=== PATIENT | male | born 1955 | race Hispanic/Latino ===

== ENCOUNTER 2017-12-23 01:45 | Emergency (ER) | payer OTHER ==
[2017-12-23] MEDS ORDERED: LIDOCAINE HCL 2% VISCOUS 15 ML UDCUP ONE (02:03)
[2017-12-23] MEDS ORDERED: MAG HYDROX/AL HYDROX/SIMETH ES 30 ML SUSP UDCUP ONE (02:03)
[2017-12-23] MEDS ORDERED: ONDANSETRON HCL 4 MG/2 ML VIAL ONE ×2 (02:04→04:01)
[2017-12-23] MEDS ORDERED: SODIUM CHLORIDE 0.9% 1000ML 1,000 ML IV ONE (02:04)
[2017-12-23 02:11] LABS: BASOPHILS % (AUTO) 0.7 % (0.0-5.0); EOSINOPHILS % (AUTO) 2.3 % (0.0-8.0); HEMATOCRIT 42.2 % (42-54); LYMPHOCYTES % (AUTO) 22.2 % (21.0-51.0); MEAN CORPUSCULAR HEMOGLOBIN 28.5 pg (27.0-33.0); MEAN CORPUSCULAR HGB CONC 34.2 g/dL (32.0-36.0); MEAN CORPUSCULAR VOLUME 83.5 fL (79-99); NEUTROPHILS % (AUTO) 68.8 % (40.0-77.0); PLATELET COUNT (AUTO) 355 K/uL (130-400); RED BLOOD CELL COUNT(AUTO) 5.06 MIL/uL (4.50-6.20); RED CELL DISTRIBUTION WIDTH 13.2 % (11.0-15.5); WHITE BLOOD COUNT (AUTO) 15.4 K/uL (4.8-10.8)
[2017-12-23 02:15] LABS: CREATININE 0.8 mg/dL (0.5-1.5); POTASSIUM 4.1 mmol/L (3.5-5.1)
[2017-12-23 02:19] LABS: ALBUMIN 3.5 g/dL (3.5-5.0); BILIRUBIN,DIRECT 0.1 mg/dL (0.0-0.3); BILIRUBIN,TOTAL 0.3 mg/dL (0.2-1.0); TOTAL PROTEIN, SERUM 7.5 g/dL (6.0-8.3)
[2017-12-23 02:36] LABS: INR 0.99 (0.85-1.15); PARTIAL THROMBOPLASTIN TIME 27.1 SEC (26.3-35.5); PROTHROMBIN TIME 10.4 SEC (9.6-11.6)
[2017-12-23] MEDS ORDERED: MORPHINE SULFATE 4 MG/1ML SYG ONE (04:02)
== END 2017-12-23 06:01 | disposition home or self-care (01) ==
LOC: EDH 01:45
DX: K29.70 Gastritis, unspecified, without bleeding (principal)
CPT/HCPCS: 36415; 71045; 74176; 80048; 80076; 82550; 83690; 84484; 85025; 85610; 85730; 93005; 96361; 96374; 96375; 96376; 99285; J2270; J2405 ×2; J7030

== ENCOUNTER 2019-11-04 06:02 | Emergency (ER) | payer OTHER ==
[2019-11-04] MEDS ORDERED: ONDANSETRON HCL 4 MG/2 ML VIAL ONE (06:38)
[2019-11-04] MEDS ORDERED: METOCLOPRAMIDE 10 MG/2 ML VIAL ONE (06:38)
[2019-11-04] MEDS ORDERED: FAMOTIDINE/PF 20 MG/2 ML VIAL IV ONE (06:39)
[2019-11-04 06:41] LABS: BASOPHILS % (AUTO) 0.5 % (0.0-5.0); EOSINOPHILS % (AUTO) 0.9 % (0.0-8.0); HEMATOCRIT 46.7 % (42-54); LYMPHOCYTES % (AUTO) 12.7 % (21.0-51.0); MEAN CORPUSCULAR HGB CONC 33.8 g/dL (32.0-36.0); MEAN CORPUSCULAR VOLUME 82.7 fL (79-99); MONOCYTES % (AUTO) 3.2 % (3.0-13.0); NEUTROPHILS % (AUTO) 82.3 % (40.0-77.0); PLATELET COUNT (AUTO) 271 K/uL (130-400); RED BLOOD CELL COUNT(AUTO) 5.65 MIL/uL (4.50-6.20); RED CELL DISTRIBUTION WIDTH 13.1 % (11.0-15.5); WHITE BLOOD COUNT (AUTO) 18.1 K/uL (4.8-10.8)
[2019-11-04 07:12] LABS: ALBUMIN 4.1 g/dL (3.5-5.0); BILIRUBIN,TOTAL 0.6 mg/dL (0.2-1.0); CREATININE 0.8 mg/dL (0.5-1.5); POTASSIUM 4.3 mmol/L (3.5-5.1); TOTAL PROTEIN, SERUM 7.9 g/dL (6.0-8.3)
[2019-11-04 07:29] LABS: INR 1.01 (0.85-1.15); PARTIAL THROMBOPLASTIN TIME 25.7 SEC (26.3-35.5); PROTHROMBIN TIME 10.6 SEC (9.6-11.6)
[2019-11-04] MEDS ORDERED: IOHEXOL-350 75 ML VIAL IV ONE (07:42)
[2019-11-04 09:55] LABS: APPEARANCE,URINE Clear (CLEAR); BILIRUBIN,URINE Negative (NEGATIVE); COLOR,URINE Yellow (YELLOW); GLUCOSE, URINE (UA) Negative (NEGATIVE); KETONES,URINE Negative (NEGATIVE); LEUKOCYTE ESTERASE ,URINE Negative (NEGATIVE); NITRATE,URINE Negative (NEGATIVE); OCCULT BLOOD,URINE Negative (NEGATIVE); PROTEIN,URINE Negative (NEGATIVE); UROBILINOGEN,URINE 0.2 mg/dL (0.2-1.0)
== END 2019-11-04 09:56 | disposition home or self-care (01) ==
LOC: EDH 06:02
DX: R10.13 Epigastric pain (principal); R19.7 Diarrhea, unspecified; I49.9 Cardiac arrhythmia, unspecified
CPT/HCPCS: 36415; 74177; 80053; 81003; 83605; 83690; 84484; 85025; 85610; 85730; 93005; 96361; 96374; 96375; 99285; J2405; J2765; J3490; Q9967

== ENCOUNTER 2021-05-13 13:38 | Observation (INO) | payer MEDICARE ==
[~2021-05-13] VITALS: Ht 172.7 cm; Wt 87.0 kg
[2021-05-13 13:47] VITALS: BP 122/63
[2021-05-13 14:13] LABS: BASOPHILS % (AUTO) 0.7 % (0.0-5.0); EOSINOPHILS % (AUTO) 6.3 % (0.0-8.0); HEMATOCRIT 44.3 % (42-54); LYMPHOCYTES % (AUTO) 23.8 % (21.0-51.0); MEAN CORPUSCULAR HEMOGLOBIN 28.3 pg (27.0-33.0); MEAN CORPUSCULAR HGB CONC 33.6 g/dL (32.0-36.0); MEAN CORPUSCULAR VOLUME 84.2 fL (79-99); MONOCYTES % (AUTO) 3.8 % (3.0-13.0); NEUTROPHILS % (AUTO) 64.9 % (40.0-77.0); PLATELET COUNT (AUTO) 238 K/uL (130-400); RED BLOOD CELL COUNT(AUTO) 5.26 MIL/uL (4.50-6.20)
[2021-05-13 14:24] LABS: CREATININE 0.9 mg/dL (0.5-1.5); POTASSIUM 4.2 mmol/L (3.5-5.1)
[2021-05-13 14:25] LABS: INR 1.15 (0.85-1.15); PROTHROMBIN TIME 12.4 SEC (9.6-11.6)
[2021-05-13 14:28] LABS: BILIRUBIN,TOTAL 0.8 mg/dL (0.2-1.0); TOTAL PROTEIN, SERUM 6.8 g/dL (6.0-8.3)
[2021-05-13 14:32] LABS: B-TYPE NATRIURETIC PEPTIDE 78 pg/mL (0-100)
[2021-05-13] MEDS ORDERED: ASPIRIN 81MG CHEW TAB ONE (16:30)
[2021-05-13] MEDS ORDERED: NITROGLYCERIN PATCH 0.2 MG/HR TD SCH (16:30)
[2021-05-13] MEDS ORDERED: NITROGLYCERIN 1GM OINT 1 INCH/1GM TD ONE (16:30)
[2021-05-13 16:40] VITALS: BP 107/57
[2021-05-13] MEDS: ASPIRIN 325MG TAB PO SCH (16:42)
[2021-05-13] MEDS: ENOXAPARIN SODIUM 100 MG/1 ML SQ SCH (18:09)
[2021-05-13 18:11] VITALS: BP 108/64
[2021-05-13 20:02] VITALS: BP 104/58
[2021-05-13 20:40] LABS: CREATINE KINASE, TOTAL 80 U/L (21-232); MYOGLOBIN 24 ng/mL (10-92); TROPONIN I < 0.04 ng/mL (0.00-0.06)
[2021-05-13 21:20] LABS: APPEARANCE,URINE Clear (CLEAR); BILIRUBIN,URINE Negative (NEGATIVE); COLOR,URINE Yellow (YELLOW); GLUCOSE, URINE (UA) Negative (NEGATIVE); KETONES,URINE Negative (NEGATIVE); LEUKOCYTE ESTERASE ,URINE Negative (NEGATIVE); NITRATE,URINE Negative (NEGATIVE); OCCULT BLOOD,URINE Negative (NEGATIVE); PROTEIN,URINE Negative (NEGATIVE)
[2021-05-13] MEDS ORDERED: 0.9%NACL 1000ML 1,000 ML IV SCH ×2 (23:00→23:59)
[2021-05-13 23:27] VITALS: BP 105/55
[2021-05-14] VITALS (7 sets, daily range): BP systolic 89–118; BP diastolic 50–73
[2021-05-14] MEDS: 0.9%NACL 1000ML 1,000 ML IV SCH ×3 (00:25→20:28)
[2021-05-14 00:35] LABS: ABG OXYGEN SATURATION 80.3 % (95.0-99.0); BASE EXCESS,VENOUS BLOOD GAS -2.9 (-2.0-3.0); PCO2,VENOUS BLOOD GAS 34 (35-48); PH,VENOUS BLOOD GAS 7.404 (7.350-7.450)
[2021-05-14 01:40] LABS: CREATINE KINASE, TOTAL 72 U/L (21-232); MYOGLOBIN 43 ng/mL (10-92); TROPONIN I < 0.04 ng/mL (0.00-0.06)
[2021-05-14] MEDS ORDERED: NAPR-1023 PO (02:23)
[2021-05-14] MEDS ORDERED: ATOR40TA69 PO (02:23)
[2021-05-14] MEDS ORDERED: METO-408 PO (02:23)
[2021-05-14] MEDS ORDERED: PANT40TA54 PO (02:23)
[2021-05-14] MEDS ORDERED: ASPI-1443 PO (02:23)
[2021-05-14] MEDS ORDERED: CLOP75TA32 PO (02:23)
[2021-05-14] MEDS: ENOXAPARIN SODIUM 100 MG/1 ML SQ SCH ×2 (05:20→16:41)
[2021-05-14 07:13] LABS: CREATINE KINASE, TOTAL 77 U/L (21-232); MYOGLOBIN 39 ng/mL (10-92); TROPONIN I < 0.04 ng/mL (0.00-0.06)
[2021-05-14] MEDS: ASPIRIN 325MG TAB PO SCH ×2 (08:58→09:02)
[2021-05-14] MEDS: CLOPIDOGREL 75MG TAB PO SCH ×2 (08:59→09:00)
[2021-05-14] MEDS ORDERED: REGADENOSON 0.4 MG/5 ML PF SYG IVP SCH (12:30)
[2021-05-15 00:45] VITALS: BP 106/59
[2021-05-15 04:00] VITALS: BP 128/67
[2021-05-15] MEDS: ENOXAPARIN SODIUM 100 MG/1 ML SQ SCH (06:16)
[2021-05-15 07:37] VITALS: BP 100/64
[2021-05-15] MEDS: CLOPIDOGREL 75MG TAB PO SCH (10:17)
[2021-05-15 12:00] VITALS: BP 134/79
[2021-05-15] MEDS ORDERED: METO-408 PO (12:40)
[2021-05-15] MEDS ORDERED: NITR0.4T SL (12:40)
[2021-05-15 16:00] VITALS: BP 122/69
== END 2021-05-15 19:25 | disposition home or self-care (01) ==
LOC: EDH 13:38 → EDHIP 16:15 → 3BH 05-14 00:36
PROVIDERS: ADMIT Internal Medicine; ATTEND Internal Medicine
DX: I24.9 Acute ischemic heart disease, unspecified (principal); I10 Essential (primary) hypertension; I25.10 Atherosclerotic heart disease of native coronary artery without angina pectoris; M54.12 Radiculopathy, cervical region; J44.9 Chronic obstructive pulmonary disease, unspecified; I95.9 Hypotension, unspecified; E78.00 Pure hypercholesterolemia, unspecified; E78.5 Hyperlipidemia, unspecified
CPT/HCPCS: 36415 ×2; 36600; 71046; 72141; 78452; 80053; 81003; 82550 ×4; 82803; 83874 ×3; 83880; 84484 ×4; 85025; 85610; 93005 ×3; 93017; 93306; 93356; 96360; 96361 ×2; 96372 ×3; 99285; A9500 ×2; C8929; G0378 ×48; J1650 ×4; J2785; J7030; 96374

== ENCOUNTER 2021-07-15 06:36 | Day surgery (SDC) | payer MEDICARE ==
[2021-07-14 12:36] VITALS: BP 151/76
[2021-07-14 12:44] LABS: BASOPHILS % (AUTO) 0.3 % (0.0-5.0); EOSINOPHILS % (AUTO) 0.7 % (0.0-8.0); HEMATOCRIT 46.2 % (42-54); LYMPHOCYTES % (AUTO) 15.1 % (21.0-51.0); MEAN CORPUSCULAR HEMOGLOBIN 29.8 pg (27.0-33.0); MEAN CORPUSCULAR HGB CONC 33.8 g/dL (32.0-36.0); MEAN CORPUSCULAR VOLUME 88.3 fL (79-99); MONOCYTES % (AUTO) 5.9 % (3.0-13.0); NEUTROPHILS % (AUTO) 77.1 % (40.0-77.0); PLATELET COUNT (AUTO) 263 K/uL (130-400); RED BLOOD CELL COUNT(AUTO) 5.23 MIL/uL (4.50-6.20); RED CELL DISTRIBUTION WIDTH 13.3 % (11.0-15.5); WHITE BLOOD COUNT (AUTO) 17.8 K/uL (4.8-10.8)
[2021-07-14 12:47] LABS: APPEARANCE,URINE Clear (CLEAR); BILIRUBIN,URINE Negative (NEGATIVE); COLOR,URINE Yellow (YELLOW); GLUCOSE, URINE (UA) Negative (NEGATIVE); KETONES,URINE Negative (NEGATIVE); LEUKOCYTE ESTERASE ,URINE Negative (NEGATIVE); NITRATE,URINE Negative (NEGATIVE); OCCULT BLOOD,URINE Negative (NEGATIVE); PH,URINE 6.5 (5.0-8.0); PROTEIN,URINE Negative (NEGATIVE)
[2021-07-14 12:56] LABS: CREATININE 0.8 mg/dL (0.5-1.5); POTASSIUM 4.7 mmol/L (3.5-5.1)
[2021-07-14 12:58] LABS: PROTHROMBIN TIME 10.9 SEC (9.6-11.6)
[2021-07-14 12:59] LABS: PARTIAL THROMBOPLASTIN TIME 24.8 SEC (26.3-35.5)
[~2021-07-15] VITALS: Ht 172.7 cm; Wt 88.9 kg
[2021-07-15] VITALS (10 sets, daily range): BP systolic 101–129; BP diastolic 56–78
[~2021-07-15 06:36] MED LIST: ASPI-1443 PO; BACL10TA PO; GABA300C PO; HYDR-4068 PO; ISOS30TA92 PO; NITR0.4T SL; PANT40TA54 PO; PRED20TA3 PO
[2021-07-15] MEDS ORDERED: 0.9%NACL 1000ML 1,000 ML IV SCH (08:00)
[2021-07-15] MEDS ORDERED: LIDOCAINE HCL 400MG/20ML VIAL ONE (10:15)
[2021-07-15] MEDS ORDERED: IOHEXOL-350 75 ML VIAL IV ONE (10:15)
[2021-07-15] MEDS ORDERED: HEPARIN 10,000 UNIT/10ML (1,000 UNIT/ML) VIAL ONE (10:15)
[2021-07-15] MEDS ORDERED: IOHEXOL-350 50ML VIAL IV ONE (10:15)
== END 2021-07-15 15:10 | disposition home or self-care (01) ==
LOC: DAH 06:36
PROVIDERS: ATTEND Internal Medicine Cardiovascular Disease
DX: I25.119 Atherosclerotic heart disease of native coronary artery with unspecified angina pectoris (principal); E78.5 Hyperlipidemia, unspecified; K21.9 Gastro-esophageal reflux disease without esophagitis; Z79.82 Long term (current) use of aspirin; Z79.899 Other long term (current) drug therapy; Z79.01 Long term (current) use of anticoagulants; Z82.49 Family history of ischemic heart disease and other diseases of the circulatory system; Z98.890 Other specified postprocedural states
CPT/HCPCS: 36415; 71045; 80048; 81003; 85025; 85610; 85730; 93005; 93458; A4215; A4216; A4221; A4222; A4223 ×3; A4606; A4663; C1760; C1894; J1644; J3490; Q9967 ×2

== ENCOUNTER → 2022-09-23 | Outpatient (CLI) | payer MEDICARE ==
[~2022-09-23] MED LIST changes: +REGADENOSON 0.4 MG/5 ML PF SYG IVP SCH
== END | disposition home or self-care (01) ==
LOC: SHCH 09:12
PROVIDERS: ATTEND Internal Medicine Cardiovascular Disease
DX: I45.10 Unspecified right bundle-branch block (principal); R07.9 Chest pain, unspecified; I63.9 Cerebral infarction, unspecified; E78.5 Hyperlipidemia, unspecified; Z79.899 Other long term (current) drug therapy
CPT/HCPCS: 78452; 96374; 93017; J2785; A9500 ×2

== ENCOUNTER → 2023-10-07 | Outpatient (CLI) | payer OTHER ==
[~2023-10-07] MED LIST changes: -REGADENOSON 0.4 MG/5 ML PF SYG IVP SCH
== END | disposition home or self-care (01) ==
LOC: SHCH 13:36
PROVIDERS: ATTEND Internal Medicine Cardiovascular Disease
DX: I35.0 Nonrheumatic aortic (valve) stenosis (principal); I48.0 Paroxysmal atrial fibrillation
CPT/HCPCS: 93306

== ENCOUNTER → 2024-01-16 | Outpatient (CLI) | payer OTHER, MEDICARE ==
[2024-01-16] MEDS: REGADENOSON 0.4 MG/5 ML PF SYG IVP ONE (14:30)
== END ==
LOC: SHCH 08:32
PROVIDERS: ATTEND Internal Medicine Cardiovascular Disease
DX: I48.91 Unspecified atrial fibrillation (principal); I25.10 Atherosclerotic heart disease of native coronary artery without angina pectoris
CPT/HCPCS: 78452; 93017; J2785; A9500 ×2; 96374

== ENCOUNTER → 2024-05-17 | Outpatient (CLI) | payer OTHER, MEDICARE ==
[2024-05-17 21:55] VITALS: PULSE 74; RESP 20
[2024-05-17 22:30] VITALS: PULSE 72; RESP 18
[2024-05-17 23:00] VITALS: PULSE 74; RESP 4
[2024-05-17 23:30] VITALS: PULSE 68; RESP 10
[2024-05-18] VITALS (10 sets, daily range): PULSE 68–80; RESP 6–24
== END | disposition home or self-care (01) ==
LOC: SLP 20:22
PROVIDERS: ATTEND Family Medicine
DX: G47.33 Obstructive sleep apnea (adult) (pediatric) (principal); I10 Essential (primary) hypertension
CPT/HCPCS: 95810

== ENCOUNTER → 2024-05-22 | Outpatient (CLI) | payer OTHER, MEDICARE ==
[2024-05-22] VITALS (9 sets, daily range): PULSE 64–84; RESP 7–35
[2024-05-23] VITALS (11 sets, daily range): PULSE 62–80; RESP 14–19
== END | disposition home or self-care (01) ==
LOC: SLP 20:25
PROVIDERS: ATTEND Family Medicine
DX: G47.33 Obstructive sleep apnea (adult) (pediatric) (principal)
CPT/HCPCS: 95811

== ENCOUNTER → 2024-07-23 | Outpatient (CLI) | payer OTHER, MEDICARE ==
[2024-07-23 12:41] LABS: CREATININE 1.1 mg/dL (0.5-1.3); POTASSIUM 4.7 mmol/L (3.5-5.1); THYROID STIMULATING HORMONE 2.14 uIU/mL (0.36-3.74)
== END | disposition home or self-care (01) ==
LOC: LAB 09:50
PROVIDERS: ATTEND Internal Medicine Cardiovascular Disease
DX: I25.10 Atherosclerotic heart disease of native coronary artery without angina pectoris (principal); I63.9 Cerebral infarction, unspecified; Z79.899 Other long term (current) drug therapy
CPT/HCPCS: 36415; 80048; 84443

== ENCOUNTER → 2024-08-15 | Outpatient (CLI) | payer OTHER, MEDICARE ==
[~2024-08-15] MED LIST changes: +IOHEXOL 350 MG/ML 100ML INFUS..BTL IV ONE; +metoPROLOL tartRATE 1 MG/ML 5ML VIAL IV ONE
== END | disposition home or self-care (01) ==
LOC: RAH 12:54
PROVIDERS: ATTEND Internal Medicine Cardiovascular Disease
DX: I25.10 Atherosclerotic heart disease of native coronary artery without angina pectoris (principal); M47.815 Spondylosis without myelopathy or radiculopathy, thoracolumbar region
CPT/HCPCS: 75574; J3490; Q9967